=== PATIENT | female | born 1985 | race Caucasian/White ===

== ENCOUNTER 2025-01-03 12:35 | Outpatient (CLI) | payer OTHER, SELFPAY ==
--- NOTE | ~2025-01-03 | US_ITS ---
EXAMINATION: US pelvic complete w TV DATE: 01/03/2025 13:01 INDICATION: Abnormal uterine bleeding. TECHNIQUE: Multiple transabdominal and transvaginal sonographic images of the pelvis were obtained. COMPARISON: Ultrasound 08/14/2019 FINDINGS: TRANSABDOMINAL ULTRASOUND: The uterus measures 9.8 x 5.7 x 4.9 cm. There is no free fluid in the pelvis. TRANSVAGINAL ULTRASOUND: The endometrial complex measures 2 mm in thickness. The right ovary measures 2.5 x 2.0 x 2.6 cm. The left ovary measures 3.6 x 2.3 x 2.0 cm. There is normal vascular flow in the ovaries. IMPRESSION: 1. Normal pelvis. Reviewed, dictated and finalized at location A. M [facility]ULER IMPRESSION: 1. Normal pelvis.
== END 2025-01-03 12:36 | disposition home or self-care (01) ==
LOC: GOSHIMG 12:35
PROVIDERS: PCP Obstetrics & Gynecology Gynecology; Visit Provider Obstetrics & Gynecology Gynecology
DX: N93.8 Other specified abnormal uterine and vaginal bleeding (principal)
CPT/HCPCS: 76830; 76856